=== PATIENT | female | born 1950 | race Caucasian/White ===

== ENCOUNTER 2016-07-30 10:09 | Inpatient (IN) | payer MEDICARE, OTHER ==
[~2016-07-30] VITALS: Ht 157.5 cm; Wt 101.6 kg
[2016-08-09] MEDS ORDERED: SYNTHROID DP0.075 MG PO (11:48)
[2016-08-09] MEDS ORDERED: MIRALAX PACKET17 GM PO ×2 (11:49→11:52)
[2016-08-09] MEDS ORDERED: ULTRAM DPS50 MG PO ×2 (11:49→11:52)
[2016-08-09] MEDS ORDERED: MELATONIN5 M2 PO (11:49)
[2016-08-09] MEDS ORDERED: ZYRTEC DPS10 MG PO (11:49)
[2016-08-09] MEDS ORDERED: ASA325 MG PO (11:49)
[2016-08-09] MEDS ORDERED: TYLENOL DPS325 MG PO (11:49)
[2016-08-09] MEDS ORDERED: SENOKOT DPS8.6 MG PO (11:50)
[2016-08-09] MEDS ORDERED: CHIA SEED PO (11:50)
[2016-08-09] MEDS ORDERED: PROTONIX40 MG PO (11:50)
[2016-08-09] MEDS ORDERED: MOBIC15 MG PO (11:50)
[2016-08-09] MEDS ORDERED: [UNRECOGNIZED DRUG - OTHER] PO (11:51)
[2016-08-09] MEDS ORDERED: FLAX SEED PO (11:51)
[2016-08-09] MEDS ORDERED: TUMERIC PO (11:51)
[2016-08-09] MEDS ORDERED: FLEXERIL-DPS10 MG PO (11:52)
[2016-08-09] MEDS ORDERED: MAPAP PM (TYLEN1 TAB PO (11:52)
== END 2016-08-07 14:45 | disposition home or self-care (01) | DRG 560 ==
LOC: SNU 11:22
PROVIDERS: ADMIT Family Medicine
DX: Z47.1 Aftercare following joint replacement surgery (principal); Z68.41 Body mass index [BMI] 40.0-44.9, adult; J84.10 Pulmonary fibrosis, unspecified; Z96.652 Presence of left artificial knee joint; E03.9 Hypothyroidism, unspecified; I73.9 Peripheral vascular disease, unspecified; E66.9 Obesity, unspecified; N18.9 Chronic kidney disease, unspecified; Z98.1 Arthrodesis status

== ENCOUNTER 2016-08-10 08:10 | Emergency (ER) | payer MEDICARE, OTHER ==
[~2016-08-10 08:10] MED LIST: ASA325 MG PO; CHIA SEED PO; FLAX SEED PO; FLEXERIL-DPS10 MG PO; MAPAP PM (TYLEN1 TAB PO; MELATONIN5 M2 PO; MIRALAX PACKET17 GM PO; MOBIC15 MG PO; PROTONIX40 MG PO; SENOKOT DPS8.6 MG PO; SYNTHROID DP0.075 MG PO; TUMERIC PO; TYLENOL DPS325 MG PO; ULTRAM DPS50 MG PO; ZYRTEC DPS10 MG PO; [UNRECOGNIZED DRUG - OTHER] PO
--- NOTE | 2016-08-14 12:33 | ER ---
ADMIT: 08/10/2016 RM/LOC: ER [facility] MR#: [id number] [address] [id number] [address] [place] [address] Emergency Room Report SEX: F AGE: 65 : 1950 DATE: 08/10/2016 ADDENDUM: This is a 65-year-old white female coming in with left knee pain. She said she felt a pop. She just had this done about 10 days ago or so. At this time, x-ray is negative. She has an appointment to see Dr. Larsen at 10:00 which she should keep. Otherwise, negative. Continue medications. CONDITION ON DISCHARGE: Good. Tone Acosta MD/ chu JOB #: [id number] CC: Tone Acosta MD, Attending Physician UNKNOWN, Family Physician
== END 2016-08-10 09:42 | disposition home or self-care (01) ==
LOC: ER 08:10
DX: G89.18 Other acute postprocedural pain (principal); M25.562 Pain in left knee; Z98.890 Other specified postprocedural states; Z88.2 Allergy status to sulfonamides; Z88.5 Allergy status to narcotic agent; Z79.899 Other long term (current) drug therapy